=== PATIENT | female | born 1930 | race Caucasian/White ===

== ENCOUNTER 2016-07-31 19:29 | Emergency (ER) | payer MEDICARE ==
[~2016-07-31] VITALS: Ht 147.3 cm; Wt 56.0 kg
[2016-07-31 19:35] VITALS: BP 142/64; PULSE 61; RESP 18; TEMP 98; O2SAT 98
[2016-07-31 19:53] VITALS: BP 190/69; PULSE 57; RESP 18; O2SAT 98
--- NOTE | 2016-07-31 19:54 | PD ---
HPI Chief Complaint: Edema Time Seen by Provider: 19:42 Travel History International Travel<30 days: No Contact w/Intl Traveler<30days: No Traveled to known affect area: No History of Present Illness HPI Patient 85-year-old female presents emergency department for evaluation of right ankle and right rodriguez swelling. Patient states that the swelling has been going on for approximately 3-4 days, started just prior to a long flight from [place] down to [place]. Patient states that also has some mild tenderness which takes some Aleve at home and has not been having any problems with pain. She denies any injury to her lower extremity. Denies history of blood clots. Denies any shortness of breath cardiac problems liver problems or kidney problems. PFSH Past Medical History Cardiovascular Problems: Yes (bypass) Diabetes: Yes ?: Not Social History Tobacco Use: Yes Allergies-Medications (Allergen,Severity, Reaction): Coded Allergies: Sulfa (Verified Allergy, Severe, Rash, 07/31/16) Reported Meds & Prescriptions Reported Meds & Active Scripts Active Reported Senna S (Sennosides-Docusate Sodium) 8.6-50 Mg Tab 50 Mg PO Vitamin B-12 (Cyanocobalamin) 100 Mcg Lozg 100 Mcg BUCCAL DAILY Ecotrin Low Strength (Aspirin) 81 Mg Tabdr 81 Mg PO DAILY Levothyroxine (Levothyroxine Sodium) 25 Mcg Tab 25 Mcg PO DAILY Losartan (Losartan Potassium) 25 Mg Tab 25 Mg PO DAILY Omeprazole 20 Mg Tab 20 Mg PO DAILY Gabapentin 300 Mg Cap 300 Mg PO HS Citalopram (Citalopram Hydrobromide) 20 Mg Tab 20 Mg PO DAILY Caltrate 600+D (Calcium Carbonate-Cholecalciferol) 600-800 Mg-Unit Tab 1 Tab PO BID Alprazolam 0.25 Mg Tab 0.25 Mg PO Q4H PRN Review of Systems Except as stated in HPI: all other systems reviewed are Neg Physical Exam Narrative GENERAL: Well-developed well-nourished no apparent distress. SKIN: Focused skin assessment warm/dry. HEAD: Atraumatic. Normocephalic. EYES: Pupils equal and round. No scleral icterus. No injection or drainage. ENT: No nasal bleeding or discharge. Mucous membranes pink and moist. NECK: Trachea midline. No JVD. CARDIOVASCULAR: Regular rate and rhythm. No murmur appreciated. RESPIRATORY: No accessory muscle use. Clear to auscultation. Breath sounds equal bilaterally. GASTROINTESTINAL: Abdomen soft, non-tender, nondistended. Hepatic and splenic margins not palpable. MUSCULOSKELETAL: No obvious deformities. No clubbing. No cyanosis. There is 2 + pitting edema of the right lower extremity from the dorsum of the foot to the proximal tibia on the right. There is 2+ pitting edema on the left only over the dorsum of the foot. There is what appears to be a joint effusion over the lateral malleolus of the right ankle. Bony examination of the right lower and left lower extremity is unremarkable, full nontender range of motion patient is ambulatory without pain. NEUROLOGICAL: Awake and alert. No obvious cranial nerve deficits. Motor grossly within normal limits. Normal speech. PSYCHIATRIC: Appropriate mood and affect; insight and judgment normal. Data Data Last Documented VS Vital Signs Date Time Temp Pulse Resp B/P Pulse Ox O2 Delivery O2 Flow Rate FiO2 07/31/16 21:35 58 18 172/68 98 07/31/16 19:53 Room Air 07/31/16 19:35 98.0 Orders Ankle, Complete ([id number]) (07/31/16 ) Us Leg Venous Doppler (07/31/16 ) ^ Musa Bandage (07/31/16 21:04) MDM Medical Decision Making Medical Screen Exam Complete: Yes Emergency Medical Condition: Yes Differential Diagnosis DVT symptoms unlikely, ankle swelling, ankle pain, ankle strain, acute CHF extremely unlikely, acute renal failure extremely likely. Narrative Course Patient was roomed in the emergency department, she is hard of hearing but otherwise appears younger than stated age and very healthy for her age. An ultrasound was obtained of her right lower extremity given a history of long plane flight was negative for DVT. X-ray was obtained of her ankle which does show soft tissue swelling about the lateral malleolus otherwise negative. Last 24 hours Impressions Lower Extremity Ultrasound 07/31/16 0000 Signed Impressions: Service Date/Time: Sunday, July 31, 2016 20:25 - CONCLUSION: Normal examination. Andrez Heredia MD Ankle X-Ray 07/31/16 0000 Signed Impressions: Service Date/Time: Sunday, July 31, 2016 19:53 - CONCLUSION: Soft swelling at lateral malleolus. No acute fracture. Andrez Heredia MD Patient was reexamined for tendon laxity and there was no tendon laxity in the ankle. I think the majority of her edema is coming from the ankle itself may be from a tendon sprain versus arthritis. Either way she is able to bear weight on this. She will be placed in an Musa wrap and discussed symptomatically management home and need for follow-up with a primary care physician. She had her daughter are comfortable with this and will be discharged. Diagnosis Primary Impression: Ankle pain, right Qualified Code: M25.571 - Acute right ankle pain Additional Impression: Pedal edema Disposition: DISCHARGE HOME Condition: Stable Jason Delgado MD Jul 31, 2016 19:54
[2016-07-31] MEDS ORDERED: CITA20TA4 PO (20:08)
[2016-07-31] MEDS ORDERED: ASPI-147 PO (20:08)
[2016-07-31] MEDS ORDERED: GABA300C5 PO (20:08)
[2016-07-31] MEDS ORDERED: CALTTAB PO (20:08)
[2016-07-31] MEDS ORDERED: SENN8.6T8 PO (20:08)
[2016-07-31] MEDS ORDERED: LEVO25TA4 PO (20:08)
[2016-07-31] MEDS ORDERED: LOSA25TA PO (20:08)
[2016-07-31] MEDS ORDERED: OMEP20TA PO (20:08)
[2016-07-31] MEDS ORDERED: ALPR0.25 PO (20:08)
[2016-07-31] MEDS ORDERED: VITA100L BUCCAL (20:08)
--- NOTE | 2016-07-31 20:20 | RADHPO ---
EXAM DATE/TIME: 07/31/2016 19:53 [facility] COMPARISON: No previous studies available for comparison. INDICATIONS : Right ankle pain and swelling for four days. No known injury. MEDICAL HISTORY : Diabetes mellitus type II. SURGICAL BONE SPUR POSTERIOR CALCANEUS.: None. ENCOUNTER: Initial ACUITY: 4 - 6 days PAIN SCORE: 5/10 LOCATION: Right ankle. FINDINGS: There is soft tissue swelling over lateral malleolus. No acute fracture. Bone spur posterior calcaneu s. No dislocation. CONCLUSION: Soft swelling at lateral malleolus. No acute fracture. Andrez Heredia MD on July 31, 2016 at 20:15 Board Certified Radiologist. This report was verified electronically.
--- NOTE | 2016-07-31 20:56 | RADHPO ---
EXAM DATE/TIME: 07/31/2016 20:25 [facility] COMPARISON: No previous studies available for comparison. INDICATIONS : Right leg swelling. MEDICAL HISTORY : Hypothyroidism. Hypertension. Diabetes. SURGICAL HISTORY : CABG Coronary artery stent. ENCOUNTER: Initial ACUITY: 1 week PAIN SCORE: 3/10 LOCATION: Right leg. TECHNIQUE: Venous ultrasound of the leg was performed from the inguinal ligament to the proximal calf. Real-lin e, color Doppler and spectral tracing, compression and augmentation techniques were used. FINDINGS: There is normal compressibility of the deep venous system from the inguinal region to the proximal ca lf. No echogenic clot is seen in the lumen of the common femoral, femoral, popliteal, and posterior tibial veins. There is a normal response of the venous system to proximal and distal augmentation an d respiration. CONCLUSION: Normal examination. Andrez Heredia MD on July 31, 2016 at 20:54 Board Certified Radiologist. This report was verified electronically.
[2016-07-31 21:35] VITALS: BP 172/68
== END 2016-07-31 21:36 | disposition home or self-care (01) ==
LOC: PHED 19:29
DX: M25.571 Pain in right ankle and joints of right foot (principal); R60.0 Localized edema; E11.9 Type 2 diabetes mellitus without complications; H91.90 Unspecified hearing loss, unspecified ear; Z72.0 Tobacco use; Z95.1 Presence of aortocoronary bypass graft; Z86.79 Personal history of other diseases of the circulatory system
CPT/HCPCS: 73610; 93971